=== PATIENT | female | born 1955 | race Caucasian/White ===

== ENCOUNTER 2018-02-19 07:25 | Outpatient (CLI) | payer OTHER ==
[2018-02-19] MEDS ORDERED: MIDAZOLAM 2 MG/2 ML VIAL IVP PRN ×2 (07:57→09:00)
[2018-02-19] MEDS ORDERED: MEPERIDINE 25 MG/ML SYR IVP PRN (07:57)
[2018-02-19] MEDS ORDERED: FLUMAZENIL 0.5 MG/5 ML MDV IVP PRN ×2 (07:57→09:00)
[2018-02-19] MEDS ORDERED: fentaNYL 100 MCG/2 ML INJ IVP PRN ×2 (07:57→09:00)
[2018-02-19] MEDS ORDERED: NALOXONE HCL 0.4 MG/ML INJ IVP PRN ×2 (07:57→09:00)
[2018-02-19] MEDS ORDERED: NS 1,000 ML IV SCH ×2 (08:00→09:00)
[2018-02-19] MEDS ORDERED: GADOBUTROL 10 ML VIAL IVP ONE (08:53)
[2018-02-19] MEDS ORDERED: ONDANSETRON 4 MG/2 ML VIAL IVP ONE (09:00)
[2018-02-19] MEDS ORDERED: NALOXONE HCL 0.4 MG/ML INJ ONE (09:00)
[2018-02-19] MEDS ORDERED: fentaNYL 100 MCG/2 ML INJ ONE (09:01)
[2018-02-19] MEDS ORDERED: MIDAZOLAM 2 MG/2 ML VIAL ONE (09:01)
[2018-02-19] MEDS ORDERED: FLUMAZENIL 0.5 MG/5 ML MDV IVP ONE (09:01)
--- NOTE | 2018-02-19 09:02 | PDPROPOC ---
Sedation Plan of Care Sedation Plan of Care: vital signs stable, mental status noted, patient educated of risks, benefits, alternatives, patient can tolerate sedation ASA Classification: ASA 1 Planned drugs: fentanyl, midazolam Mallampati Score: Class 2 Mallampati Reference Image: Patient passed 3-3-2 rule?: Yes
--- NOTE | 2018-02-19 09:03 | PDGENHP ---
History & Physical Chief Complaint: PARKINSONS History of Present Illness: PARKINSONS Pertinent Past, Social, Family History: NONSMOKER, PARKINSONS Relevant Physical Exam: CLEAR LUNGS, RRR Cardiorespiratory Assessment: RRR, CLEAR LUNGS
[2018-02-19 10:35] VITALS: BP 112/94
[2018-02-19] MEDS ORDERED: ONDANSETRON 4 MG/2 ML VIAL IVP PRN (10:54)
[2018-02-19] MEDS ORDERED: ACETAMINOPHEN 325 MG TAB PO PRN (10:54)
== END 2018-02-19 11:00 | disposition home or self-care (01) ==
LOC: FIMAGING 07:25
PROVIDERS: ATTEND Physician Assistant Surgical
DX: G20 Parkinson's disease (principal)
CPT/HCPCS: A9585; J2250; J2310; J3010

== ENCOUNTER 2018-03-01 06:05 | Observation (INO) | payer OTHER ==
--- NOTE | 2018-02-21 11:35 | GHP ---
DATE OF ADMISSION: 03/01/2018 HISTORY OF PRESENT ILLNESS: The patient is a 62-year-old female with Parkinson disease. She follows with her neurologist, Dr. Jarret Martínez, for medical management. She was diagnosed with Parkinson diseas e around 2011. Her symptoms first presented with small hand writing and a right hand tremor at rest. Her tremor is present at rest, but she finds that it can worsen with certain movements. Her medica tions work for unpredictable amounts of time, and she experiences wearing off. Her medications cause dyskinesias. She reports dystonia, bradykinesia, rigidity, freezing, balance issues, drooling, occa sional constipation, REM sleep disorder, hallucinations, and softening of speech. The freezing will slightly improve on medications. She has depression and anxiety. PAST MEDICAL HISTORY: Parkinson disease and depression. PAST SURGERIES: Three hernia surgeries. SOCIAL HISTORY: The patient is . Drinks alcohol socially. Denies tobacco use. FAMILY HISTORY: No pertinent. NEUROSURGICAL FAMILY HISTORY: Negative except for what is mentioned in the HPI. REVIEW OF SYSTEMS: Negative except for what is mentioned in the HPI. ALLERGIES: No known drug allergies. CURRENT MEDICATIONS: Amantadine, gabapentin, Zoloft, Sinemet, and levothyroxine. PHYSICAL EXAM: GENERAL APPEARANCE: The patient is seen and examined. Appears to be in no apparent distress. Mood and affect are appropriate. Alert and oriented. HEENT: Pupils are equal and reacti ve. Extraocular movements are intact. Facial expression is symmetrical. Tongue is midline with pro trusion. Hearing is grossly intact. NEUROLOGIC: Speech is fluent, without any dysarthria. Muscle strength is well preserved in the upper and lower extremities, and sensation is intact to light touch . ASSESSMENT AND PLAN: In summary, the patient is a 62-year-old female with Parkinson disease. She wright s had a neuropsych evaluation completed with Dr. Peña that states the patient is a suitable candid ate for deep brain stimulation. She has differences in her verbal and visual memory; however, both s cores are average to above average. It was also found that the patient has anxiety and depression th at are both situational, and thus during this process of DBS, we will closely monitor for signs of wo rsening depression. She underwent on-off testing on December 06 by her neurologist and had an off score of 17 and an on score of 6. The patient has been deemed a suitable candidate for deep brain s timulation and thus is here today to proceed. The risks, benefits, and procedure were discussed in d etail with the patient. We will proceed with unilateral left DBS lead placement to the STN today. /[id number]/MODL
[~2018-03-01 06:05] MED LIST: CEFUROXIME 1,500 MG in NS 50 ML IV ONE
[2018-03-01] MEDS ORDERED: LR 1,000 ML IV ONE (06:25)
[2018-03-01] MEDS ORDERED: LIDOCAINE 1% 2 ML INJ ID PRN (06:25)
[2018-03-01 07:24] LABS: PLATELET COUNT 160 10^3/uL (150-400)
--- NOTE | 2018-03-01 07:29 | PDHPUP ---
History & Physical Update H&P update statement: This history and physical update is based on an assessment of the patient which was completed after admission or registration (within 24 hours), but prior to the surgery/procedure. H&P update: H&P reviewed & patient examined, no change in patient's condition since H&P completed
--- NOTE | 2018-03-01 07:31 | PDANEPAE ---
ANE Past Medical History - Cardiovascular History Hx Hypertension: No Hx Arrhythmias: No Hx Chest Pain: No Hx Coronary Artery / Peripheral Vascular Disease: No Hx CHF / Valvular Disease: No Hx Palpitations: No - Pulmonary History Hx COPD: No Hx Asthma/Reactive Airway Disease: No Hx Recent Upper Respiratory Infection: No Hx Oxygen in Use at Home: No Hx Sleep Apnea: No Sleep Apnea Screening Result - Last Documented: Negative - Neurologic History Hx Cerebrovascular Accident: No Hx Seizures: No Hx Dementia: No Neurologic History Comment: parkinson's - Endocrine History Hx Diabetes: No - Renal History Hx Renal Disorders: No - Liver History Hx Hepatic Disorders: No - Neurological & Psychiatric Hx Hx Neurological and Psychiatric Disorders: Yes Neurological / Psychiatric History Comment: Parkinson's. INSOMNIA. SOME ISSUES WITH HALLUCINATIONS - Cancer History Hx Cancer: No - Congenital Disorder History Hx Congenital Disorders: No - GI History Hx Gastrointestinal Disorders: No - Other Health History Other Health History: PERIPHERAL NEUROPATHY. LUMBAR RADICULOPATHY. WEARS GLASSES - Chronic Pain History Chronic Pain: No - Surgical History Prior Surgeries: LT DEEP BRAIN STIMULATOR 03/01/18. HETAL ING HERNIA ANE Review of Systems Review of Systems: - Exercise capacity METS (RN): 4 METS ANE Patient History - Allergies Allergies/Adverse Reactions: No Known Allergies Allergy (Verified 02/19/18 10:40) - Home Medications Home Medications: Amantadine HCl [Amantadine] 100 mg PO ,12 02/08/18 [Last Taken 02/28/18 12:00] Carbidopa/Levodopa 25/250Mg [Sinemet 25/250 MG (*)] 1 tab PO 04,08,12,16 [Last Taken 02/28/18 16:00] Gabapentin 600 mg PO 04,08,12,21 02/08/18 [Last Taken 02/28/18 21:30] Herbals/Supplements -Info Only 1 ea PO DAILY 02/08/18 [Last Taken 02/22/18] Levothyroxine [Synthroid 75 mcg (*)] 75 mcg PO 0400 02/08/18 [Last Taken 04:00] Sertraline HCl [Zoloft 50mg (*)] 25 mg DAILY 02/08/18 [Last Taken 03/01/18 04:00 ] Carbidopa/Levodopa 25/250Mg [Sinemet 25/250 MG (*)] 0.5 tab PO HS 02/13/18 [ Last Taken 02/28/18 16:00] - NPO status NPO Since - Liquids (Date): 02/28/18 NPO Since - Liquids (Time): 22:30 NPO Since - Solids (Date): 02/28/18 NPO Since - Solids (Time): 22:30 - Smoking Hx Smoking Status: Never smoked - Family Anes Hx Family Hx Anesthesia Complications: none ANE Labs/Vital Signs - Labs Result Diagrams: 03/01/18 07:10 03/01/18 07:10 - Vital Signs Blood Pressure: 150/95 Heart Rate: 78 Respiratory Rate: 18 O2 Sat (%): 97 Height: 167.64 cm Weight: 62.142 kg ANE Physical Exam - Airway Neck exam: FROM Mallampati Score: Class 2 Mouth exam: normal dental/mouth exam - Pulmonary Pulmonary: no respiratory distress - Cardiovascular Cardiovascular: regular rate and rhythym - ASA Status ASA Status: II ANE Anesthesia Plan Anesthesia Plan: MAC Lines/Monitors: arterial line Total IV Anesthesia: Yes
[2018-03-01] MEDS ORDERED: fentaNYL 250 MCG/5 ML INJ ONE (07:41)
[2018-03-01] MEDS ORDERED: DEXMEDETOMIDINE HCL 400 MCG in NS 100 ML IV SCH (08:00)
[2018-03-01] MEDS ORDERED: MAGNESIUM HYDROXIDE 30 ML UDCUP PO PRN (11:01)
[2018-03-01] MEDS ORDERED: POLYETHYLENE GLYCOL 3350 17 GM PKT PO PRN (11:01)
[2018-03-01] MEDS ORDERED: LACTULOSE 20 GM/30 ML UDCUP PO PRN (11:01)
[2018-03-01] MEDS ORDERED: BISACODYL 10 MG SUPP PR PRN (11:01)
[2018-03-01] MEDS ORDERED: hydrALAZINE 20 MG/ML VIAL IVP PRN (11:04)
[2018-03-01] MEDS ORDERED: NALOXONE HCL 0.4 MG/ML INJ IVP PRN (11:06)
[2018-03-01] MEDS ORDERED: ACETAMINOPHEN 500 MG TAB PO PRN (11:06)
[2018-03-01] MEDS ORDERED: ONDANSETRON 4 MG/2 ML VIAL IVP PRN (11:06)
[2018-03-01] MEDS ORDERED: ALBUTEROL 3 ML DEYVIAL IH PRN (11:06)
--- NOTE | 2018-03-01 11:06 | POSTOPPROG ---
Post Op Note Date of Operation: 03/01/18 Surgeon: Susy Mackey Group Manager: Rachel uY PA-C Anesthesiologist: Anesthesia: IV Sedation, Local (Specify) Pre-op Diagnosis: Parkinson's Post-op Diagnosis: Parkinson's Procedure: Left STN DBS lead placement Inf/Abcess present in the surg proc area at time of surgery?: No Depth: Deep Incisional (Fascial) EBL: Minimal Plan Plan: 62 yo female s/p left STN DBS lead placement for PD - neuro checks - maintain SBP < 140 - postop head CT pending - PT/OT - pain control - discharge in am Patient seen in recovery Awake. Alert Following commands PERRL. Facial expression symmetrical Muscle strength full at 5/5
--- NOTE | 2018-03-01 11:06 | POSTANESTH ---
Post Anesthetic Evaluation Cardiovascular Status: Similar to Pre-Op Cond Respiratory Status: Similar to Pre-op Cond. Level of Consciousness/Mental Status: Alert and Oriented Pain Control: Adequate, Prn Tx Ordered Nausea/Vomiting Control: Adequate, Prn Tx Ordered Complications Possibly Related to Anesthesia: None Noted
[2018-03-01] MEDS ORDERED: BUPIVACAINE 0.25% 10 ML SDV ONE (11:13)
[2018-03-01] MEDS ORDERED: POVIDONE-IODINE 30 GM OINTTUBE TP ONE (11:13)
[2018-03-01] MEDS ORDERED: CHLORHEXIDINE GLUC HIBICLENS 118 ML BTL TP ONE (11:13)
[2018-03-01] MEDS ORDERED: GENTAMICIN SULFATE 80 MG/2 ML VIAL ONE (11:13)
[2018-03-01] MEDS ORDERED: THROMBIN (BOVINE) 5,000 UNIT VIAL TP ONE (11:14)
[2018-03-01] MEDS ORDERED: NS W/ 20 KCl/L 1,000 ML IV SCH (11:15)
[2018-03-01] MEDS ORDERED: BUPIVACAINE/EPI 0.25% 30 ML SDV ONE (11:18)
[2018-03-01] MEDS ORDERED: ACETAMINOPHEN 325 MG TAB ONE (11:32)
[2018-03-01] MEDS: AMANTADINE HCL 100 MG CAP PO SCH (11:39)
[2018-03-01] MEDS: CARBIDOPA/LEVODOPA 25 MG/250 MG TAB PO SCH ×2 (11:39→17:29)
[2018-03-01] MEDS: GABAPENTIN 300 MG CAP PO SCH ×2 (11:39→20:27)
[2018-03-01] MEDS: ACETAMINOPHEN 325 MG TAB PO PRN ×2 (11:39→20:27)
--- NOTE | 2018-03-01 11:41 | GOP ---
DATE OF OPERATION: 03/01/2018 SURGEON: Susy Mackey DO RETURNED GOODS REPAIRER: Pat Yu PA-C. PREOPERATIVE DIAGNOSIS: Parkinson disease. POSTOPERATIVE DIAGNOSIS: Parkinson disease. PROCEDURE PERFORMED: 1. Left deep brain stimulator lead placement with [employer] [address] and nucleus. 2. Stealth stereotaxis. FINDINGS: SPECIMENS: None. ESTIMATED BLOOD LOSS: 10 mL. INDICATIONS: This is a 62-year-old female with idiopathic Parkinson disease who was evaluated by a joti-disciplinary team, found to be a good candidate for DBS. She elected to move forward starting w ith right body. DESCRIPTION OF PROCEDURE: She was identified, consented. Sites were marked. Brought to the operati ng room. Anesthetized with local with MAC. Hair was clipped with the OR clippers. Head was cleanse d with ChloraPrep. Using povidone iodine on the pin sites, we anesthetized the pin sites with 0.25% Marcaine with epinephrine. Placed a Leksell frame as midline as possible. Performed a Stealth stere otactic spin and merged this with a preoperative stereotactic plan in the [employer] Framelink software. The ACPC was 24.61. The entry point was an X of -39.76, a Y of 34.49, a Z of 59.76 and the target was an X of -11.24, Y of -2.01 and Z of -4.87. These coordinates corresponded to 23.9 degrees off mi dsagittal, 60.6 degrees off midaxial. These coordinates corresponded to Leksell frame coordinates of an X of 114, Y of 105, a Z of 105, a ring of 60 degrees and arc of 111.7 degrees. We elected to per form an anterior and a center tract. 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 She was prepped and draped in the usual sterile fashion. All Leksell frame coordinates were set and triple checked by all providers in the room. The incision site was marked using Leksell frame coordinates a nd a cannula. Half-mcdonough incision was anesthetized with 0.5% Marcaine with epinephrine. Incision was made with a 10 blade. Hemostasis was obtained with bipolar and Clyde clips. We elevated the perios teum with a periosteal elevator. We then marked the bone incision. Using the cannula, performed a p ilot hole and then a 14 mm bur hole. The edges were waxed. We placed the Stealth Navigus and locked it down with 5 mm screws. Verified the clipping mechanism, clipped and locked. Opened the dura sha rply with an 11 blade, and then used a bipolar to coagulate. We then gently introduced the center an d anterior cannulae,locked them in place, placed Gelfoam and DuraSeal, then placed microelectrodes. I then required an assistant teaching professor as 1 provider needed to be scrubbed to manage the cannulas and the drive and 1 provider for testing. Intraoperative testing was performed and intraoperative DION got approxi mately 7 mm of STN getting out at 1 below on both the anterior and the center although the anterior t ract was more robust. We got motor driving and were pleased with this. We macro stim for both of th em, got good relief with little or no side effects, but because the anterior tract was a little bit m ore robust, we elected to implant in the anterior tract here at 1 [address] We drove to this re gion, removed the microelectrodes, measured the lead to the appropriate depth and placed it into the anterior tract and then performed intraoperative testing. We got excellent relief at low voltages wi th no side effects at any of the contacts. Every contact was usable, every contact was therapeutic. We elected to leave the lead here. We placed the sites, took an x-ray and then performed a stereotactic spin. This was to the preoperative plan and it was done on where we would exp ect it to be. We then retracted the cannulas and removed the Gel-Foam and DuraSeal, irrigated with g entamicin-infused saline, placed the clipping mechanism, clipped and locked it, marked the lead, clarisa tomi the internal stylet, brought the lead down and out the cannula using bayonets, placed it into the groove, placed the cap over the lead. Took another x-ray. It had not migrated. Placed the boot ov er the lead, placed the extension over the lead, locked it into place, protecting each contact, broug ht the boot over the lead extension complex, tied in position with 2-0 silk ties at 2 positions. Lencho neled posterior with a periosteal elevator. Anesthetized the stab incision posterior with 0.25% Hermilo ralph with epinephrine. A stab incision was made with an 11 blade, and tunneled posterior and anterio r, bringing the lead extension down and out, cutting at the skin, coiling the remainder of the lead a nd the extension posterior and around the incision. I took a final x-ray. It had not migrated. Environmental Projects Advisor iously irrigated with over a liter of gentamicin-infused saline. Closed the galea with 2-0 Vicryl po p-offs. The skin with 3-0 running nylon. The wound was dressed with Xeroform and Telfa and the fram e was removed. Head was wrapped. Patient tolerated procedure well, no complications. FLUIDS: 1100 mL crystalloid. URINE OUTPUT: Not recorded. DRAINS: None. COMPLICATIONS: None. /[id number]/MODL
--- NOTE | 2018-03-01 12:22 | GPN ---
DATE OF PROCEDURE: 03/01/2018 PREPROCEDURE DIAGNOSIS: Parkinson disease. POSTPROCEDURE DIAGNOSIS: Parkinson disease. PROCEDURE PERFORMED: Intraoperative functional subcortical mapping by microelectrode recording and s timulation. COMPLICATIONS: None. INDICATIONS FOR PROCEDURE: Determination of optimal electrode lead placement for deep brain stimulat ion therapy for Parkinson disease to the STN. DESCRIPTION OF PROCEDURE: Following the incision on the left, a matt hole was drilled. The arc was then arranged with the following coordinates: X 114, Y 105, Z 105, ring 60, arc 111.7. The recordin g microelectrode was then slowly advanced into the brain using an anterior and central tract. There was uptake at 8.5 above target in the anterior tract with evidence of entering STN at 5.5 above targe t. In the anterior tract at 5.5 above target, there was change in stimulation with passive range of motion with elbow flexion. There was evidence of a tremor cell at 0.7 above target, and we exited ST N at approximately 1 below target. In regard to the center tract, there was uptake at 6.1 above targ et and evidence of entering STN at 5.1 above target. We exited STN at 1 below target. We then proce eded with macro stimulation for both the center and anterior tract. For both of these track, the pat ient had no side effects up to 4.5, and she had more improvement in her bradykinesias and rigidity wi th the anterior tract. We therefore elected to place the lead using the anterior tract with the shelby om of the lead at 1 below. We then proceeded with test stimulation at 0-. The patient had improveme nt in her bradykinesias and rigidity with no side effects up to 3.5. At 1-, improvement in bradykine marcelina and rigidity with no side effects up to 3.5. At 2-, improvement in bradykinesias and rigidity w ith no side effects up to 3.5. At 3-, no side effects up to 3.5. With these recordings and test sti mulation, we elected to place the lead in this location utilizing the anterior tract with the bottom of the lead at 1 below target. The patient tolerated the surgery well, and was transferred to the [facility] for further neurological checks and pain control. /[id number]/MODL
[2018-03-01] MEDS: HYDROCODONE/APAP 10/325 TAB PO PRN ×2 (15:19→21:32)
[2018-03-01] MEDS: CEFUROXIME 1,500 MG in NS 50 ML IV SCH ×2 (15:48→22:37)
[2018-03-01] MEDS: oxyCODONE IR 5 MG TAB PO PRN ×2 (16:16→19:31)
[2018-03-01] MEDS: SENNOSIDES/DOCUSATE SODIUM TAB PO SCH (20:28)
[2018-03-01] MEDS: ONDANSETRON 4 MG/2 ML VIAL IVP PRN (20:40)
[2018-03-01] MEDS ORDERED: CARBIDOPA/LEVODOPA 25 MG/250 MG TAB PO SCH (21:00)
[2018-03-02] MEDS ORDERED: LEVOTHYROXINE 75 MCG TAB PO SCH (04:00)
[2018-03-02] MEDS: HYDROCODONE/APAP 10/325 TAB PO PRN (04:02)
[2018-03-02] MEDS: GABAPENTIN 300 MG CAP PO SCH ×2 (04:03→09:05)
[2018-03-02] MEDS: CARBIDOPA/LEVODOPA 25 MG/250 MG TAB PO SCH ×2 (04:03→10:07)
[2018-03-02] MEDS: ONDANSETRON 4 MG/2 ML VIAL IVP PRN (06:34)
[2018-03-02] MEDS ORDERED: SERTRALINE HCL 50 MG TAB PO SCH (09:00)
[2018-03-02] MEDS: SENNOSIDES/DOCUSATE SODIUM TAB PO SCH (09:05)
[2018-03-02] MEDS: AMANTADINE HCL 100 MG CAP PO SCH (10:07)
[2018-03-02 12:06] VITALS: BP 98/56
--- NOTE | 2018-03-02 12:08 | NEUSURGPN ---
Date of Surgery: 03/01/18 Post Op Day: 1 Assessment/Plan: Assessment: 62 yo female s/p left STN DBS lead placement for PD POD#1 Plan: - postop head CT shows stable catheter placement, mild left pneumocephalus - PT/OT - pain control-well controlled with current regimen - discharge home Discussed patient with Dr Mackey Subjective: Doing well, denies pain Objective: PERRL. Facial expression symmetrical Muscle strength full at 5/5 Incision CDI with sutures Neuro Check Frequency: per routine Urinary Catheter in Place: No - Physician Discussed Patient with : Key Neurosurgery Physical Exam - Vitals, I&O, Labs I and O 03/01/18 03/02/18 03/03/18 05:59 05:59 05:59 Intake Total 2495 350 Output Total 310 Balance 2185 350 Weight 62.142 kg Intake: Oral (ml) 520 350 IV Intake (ml) 700 IV Infused (ml) 1275 Cefuroxime 1,500 mg In Ns 160 50 ml @ 200 mls/hr IV ONCALL ONE Rx#:[id number] Cefuroxime 1,500 mg In Ns 55 50 ml @ 200 mls/hr IV Q8HRS ROSIE Rx#:[id number] NS W/ 20 KCl/L 1,000 ml @ 1060 75 mls/hr IV CONT ROSIE Rx #:[id number] Output: Urine (ml) 300 Bedside Commode 300 Estimated Blood Loss (ml) 10 Other: Intake Quantity Yes Yes Sufficient Number of Emesis 1 2 Occurrences Vital Signs Temp Pulse Resp BP Pulse Ox 36.5 C 67 16 127/83 H 96 03/02/18 08:00 03/02/18 08:00 03/02/18 08:00 03/02/18 08:00 03/02/18 08:00 Laboratory Results 03/01/18 07:10 03/01/18 07:10 ICD10 Worksheet Patient Problems: Problems Problem Status Onset S/P deep brain stimulator placement Acute - ICD10 Problem Qualifiers (1) S/P deep brain stimulator placement
--- NOTE | 2018-03-02 14:34 | ASDISCHSUM ---
Discharge Information Plan Status:Home with No Needs Medically Cleared to Leave:03/01/2018 Discharge Date:03/02/2018 12:44 PM CM D/C Disposition:Home, Routine, Self-Care ADT D/C Disposition:Home, Routine, Self-Care Projected Discharge Date:03/02/2018 12:44 PM Transportation at D/C:Family Discharge Delay Reason: Follow-Up Date:03/02/2018 12:44 PM Discharge Slot: Final Diagnosis:Parkinsons Disease Placement Information Patient Contact Information Contact Name:DHEERAJ Relationship: Address:[address] Work Phone: [facility]:[place] Alternate Phone: [facility]/Zip Code:[place] [address] Email: Financial Information Financial Class:HMO and PPO Plans Primary Plan Desc:[employer] Primary Plan Number:[id number] Secondary Plan Desc: Secondary Plan Number: Assessment Information Case Management Discharge Plan Note Case Management Discharge Discharge Order Complete? Answers: Yes Patient to Obtain Answers: via Family Medications Transportation Arranged Answers: Family/Friends Transport will Pick (Date 03/02/2018 12:00 AM & Time) Discharge Comments Notes: Pt left before CM was able to speak with her. Pt called by CM after discharge. Pt declines home care at this time. No CM needs noted at this time. Date Signed: 03/02/2018 02:31 PM Electronically Signed By:Kena Ma LACE LACE Length of stay for Answers: 1 day current admission Acuity / Level of Answers: No Care: Did the patient have an inpatient admission? Comorbidities - select Answers: Other Notes: Parkinsons all that apply # of Emergency department Answers: 0 visits in the last 6 months Score: 2 Date Signed: 03/02/2018 02:33 PM Electronically Signed By:Kena Ma Intervention Information
[2018-03-04] MEDS ORDERED: ENOXAPARIN 40 MG/0.4 ML SYR SC SCH (09:00)
--- NOTE | 2018-03-05 14:18 | GDS ---
ADMITTING DIAGNOSIS: Parkinson disease. POSTOPERATIVE DIAGNOSIS: Parkinson disease. PROCEDURE PERFORMED: Left deep brain stimulator lead placement to the STN. CONSULTS: Physical and Occupational Therapy. HOSPITAL COURSE: The patient is a 62-year-old female who presented to the hospital to undergo deep brain stimulation for Parkinson disease. She underwent surgery by Dr. Susy Mackey on March 01, with placement of left deep brain stimulator lead to the STN. The patient tolerated the surgery well without complications. Postoperative head CT was negative for any acute intracranial hemorrhage. She was transferred to the floor for further pain control and neurological checks. The following morning, she was tolerating a diet, voiding without difficulty, pain controlled, and medically stable, and thus, she was deemed suitable for discharge. She was discharged to home on March 02. DISCHARGE INSTRUCTIONS: Patient is asked to follow up with Dr. Susy Mackey in 2 weeks. She needs to refrain from heavy lifting and strenuous activity. DISCHARGE MEDICATIONS: Please refer to the [facility] /[id number]/MODL MTDD
== END 2018-03-02 12:44 | disposition home or self-care (01) ==
LOC: F3N 06:05
PROVIDERS: ADMIT Neurological Surgery; ATTEND Neurological Surgery
DX: G20 Parkinson's disease (principal); F32.9 Major depressive disorder, single episode, unspecified
CPT/HCPCS: 61850; 70450; 76001; 97165; G0378; J0697; J1580; J2405; J3010

== ENCOUNTER 2018-03-29 05:34 | Observation (INO) | payer OTHER ==
[2018-03-29] MEDS ORDERED: CEFUROXIME 1,500 MG in NS 50 ML IV ONE (06:00)
[2018-03-29] MEDS ORDERED: CHLORHEXIDINE GLUC HIBICLENS 118 ML BTL TP ONE (06:46)
[2018-03-29] MEDS ORDERED: THROMBIN (BOVINE) 20,000 UNIT VIAL TP ONE (06:46)
[2018-03-29] MEDS ORDERED: BUPIVACAINE/EPI 0.25% 30 ML SDV ONE (06:46)
[2018-03-29] MEDS ORDERED: GENTAMICIN SULFATE 80 MG/2 ML VIAL ONE (06:47)
[2018-03-29] MEDS ORDERED: POVIDONE-IODINE 30 GM OINTTUBE TP ONE (06:47)
[2018-03-29] MEDS ORDERED: fentaNYL 100 MCG/2 ML INJ ONE (07:16)
[2018-03-29] MEDS ORDERED: PROPOFOL/EMULSION 500 MG/50 ML BOTTLE IV ONE (07:17)
--- NOTE | 2018-03-29 07:18 | PDANEPAE ---
ANE History of Present Illness parkinson's ANE Past Medical History - Cardiovascular History Hx Hypertension: No Hx Arrhythmias: No Hx Chest Pain: No Hx Coronary Artery / Peripheral Vascular Disease: No Hx CHF / Valvular Disease: No Hx Palpitations: No - Pulmonary History Hx COPD: No Hx Asthma/Reactive Airway Disease: No Hx Recent Upper Respiratory Infection: No Hx Oxygen in Use at Home: No Hx Sleep Apnea: No Sleep Apnea Screening Result - Last Documented: Negative - Neurologic History Hx Cerebrovascular Accident: No Hx Seizures: No Hx Dementia: No Neurologic History Comment: parkinson's. peripherial neuropathy. lumbar radiculopathy - Endocrine History Hx Diabetes: No Hypothyroid: No Hyperthyroid: No Obesity: no - Renal History Hx Renal Disorders: No - Liver History Hx Hepatic Disorders: No - Neurological & Psychiatric Hx Hx Neurological and Psychiatric Disorders: Yes Neurological / Psychiatric History Comment: depression. anxiety. some insomnia issues and hallucinations r/t parkinson's meds - Cancer History Hx Cancer: No - Congenital Disorder History Hx Congenital Disorders: No - GI History GERD: no Hx Gastrointestinal Disorders: No - Other Health History Other Health History: wears glasses - Chronic Pain History Chronic Pain: No - Surgical History Prior Surgeries: DBS lead placements. hernia repair ANE Review of Systems Review of Systems: - Exercise capacity Exercise capacity: >=4 METS METS (RN): 4 METS ANE Patient History - Allergies Allergies/Adverse Reactions: No Known Allergies Allergy (Verified 03/26/18 10:58) - Home Medications Home medications: home medication list seen and reviewed Home Medications: Amantadine HCl [Amantadine] 100 mg PO 08,12 02/08/18 [Last Taken 03/28/18 12:00] Carbidopa/Levodopa 25/250Mg [Sinemet 25/250 MG (*)] 1 tab PO 04,08,12,16 [Last Taken 03/28/18 16:00] Gabapentin 600 mg PO 04,08,12,21 02/08/18 [Last Taken 03/28/18 21:00] Levothyroxine [Synthroid 75 mcg (*)] 75 mcg PO 0400 02/08/18 [Last Taken 04:00] Sertraline HCl [Zoloft 50mg (*)] 25 mg DAILY 02/08/18 [Last Taken 03/29/18 04:00 ] Carbidopa/Levodopa 25/250Mg [Sinemet 25/250 MG (*)] 0.5 tab PO HS 02/13/18 [ Last Taken 03/27/18 21:30] - NPO status NPO Status: no food or drink >8 hours NPO Since - Liquids (Date): 03/28/18 NPO Since - Liquids (Time): 23:30 NPO Since - Solids (Date): 03/28/18 NPO Since - Solids (Time): 23:30 - Smoking Hx Smoking Status: Never smoked - Family Anes Hx Family Hx Anesthesia Complications: none ANE Labs/Vital Signs - Vital Signs Blood Pressure: 151/95 Heart Rate: 67 Respiratory Rate: 18 O2 Sat (%): 99 Height: 167.64 cm Weight: 62.142 kg ANE Physical Exam - Airway Mallampati Score: Class 2 Mouth exam: normal dental/mouth exam - Pulmonary Pulmonary: no respiratory distress - Cardiovascular Cardiovascular: regular rate and rhythym - ASA Status ASA Status: II ANE Anesthesia Plan Anesthesia Plan: MAC Lines/Monitors: arterial line
[2018-03-29] MEDS ORDERED: DEXMEDETOMIDINE HCL 200 MCG in NS 50 ML IV ONE ×2 (07:30→08:30)
[2018-03-29] MEDS ORDERED: PHENYLEPHRINE HCL 100 MCG/ML SYR ONE (08:37)
[2018-03-29] MEDS ORDERED: POLYETHYLENE GLYCOL 3350 17 GM PKT PO PRN (09:03)
[2018-03-29] MEDS ORDERED: BISACODYL 10 MG SUPP PR PRN (09:03)
[2018-03-29] MEDS ORDERED: MAGNESIUM HYDROXIDE 30 ML UDCUP PO PRN (09:03)
[2018-03-29] MEDS ORDERED: LACTULOSE 20 GM/30 ML UDCUP PO PRN (09:03)
[2018-03-29] MEDS ORDERED: ONDANSETRON 4 MG/2 ML VIAL IVP PRN ×2 (09:03→10:09)
[2018-03-29] MEDS ORDERED: hydrALAZINE 20 MG/ML VIAL IVP PRN (09:08)
[2018-03-29] MEDS ORDERED: NS W/ 20 KCl/L 1,000 ML IV SCH (09:15)
[2018-03-29] MEDS ORDERED: HYDROmorphONE/DILAUDID 2 MG/ML INJ IVP PRN (10:09)
[2018-03-29] MEDS ORDERED: LR 500 ML IV PRN (10:09)
[2018-03-29] MEDS ORDERED: fentaNYL 100 MCG/2 ML INJ IVP PRN (10:09)
[2018-03-29] MEDS ORDERED: ALBUTEROL 3 ML DEYVIAL IH PRN (10:09)
[2018-03-29] MEDS ORDERED: NALOXONE HCL 0.4 MG/ML INJ IVP PRN (10:09)
[2018-03-29] MEDS ORDERED: ONDANSETRON 4 MG/2 ML VIAL ONE (10:09)
--- NOTE | 2018-03-29 10:23 | POSTANESTH ---
Post Anesthetic Evaluation Cardiovascular Status: Normal, Stable Respiratory Status: Normal, Stable Level of Consciousness/Mental Status: Can Participate in Eval Pain Control: Adequate, Prn Tx Ordered Nausea/Vomiting Control: Adequate, Prn Tx Ordered Complications Possibly Related to Anesthesia: None Noted
--- NOTE | 2018-03-29 11:08 | POSTOPPROG ---
Post Op Note Date of Operation: 03/29/18 Surgeon: Susy Mackey Quantometer Operator: Pat Yu PA-C Anesthesiologist: Dr. Hinds Anesthesia: GET(General Endotracheal) Pre-op Diagnosis: Parkinson's Post-op Diagnosis: Parkinson's Procedure: right STN DBS lead placement Inf/Abcess present in the surg proc area at time of surgery?: No Depth: Superfical (Skin SQ) EBL: Minimal Plan Plan: 62 yo female s/p right STN DBS lead placement for PD - neuro checks - pain control - maintain SBP < 140 - postop head CT pending, if stable can transfer to the floor - discharge to home tomorrow Exam PERRL. EOMI Facial expression symmetrical Following commands Strength full Incision with dressing c/d/i
[2018-03-29] MEDS: GABAPENTIN 300 MG CAP PO SCH ×2 (11:12→20:29)
--- NOTE | 2018-03-29 11:12 | GOP ---
DATE OF OPERATION: SURGEON: Susy Mackey DO NEUROSURGEON: Susy Mackey DO GRAIN BUYER: STAECY Vallejo PREOPERATIVE DIAGNOSIS: Parkinson disease. POSTOPERATIVE DIAGNOSIS: Parkinson disease. PROCEDURE PERFORMED: 1. Right deep brain stimulator lead placement to subthalamic nucleus with Medtronic 3389 lead. 2. Stealth stereotaxis. FINDINGS: SPECIMENS: None. ESTIMATED BLOOD LOSS: 25 mL. INDICATIONS: This is a 62-year-old female who had been evaluated by a multidisciplinary team, found to be a good candidate for DBS for Parkinson disease, elected to move forward, had a left-sided lead placed approximately 1 month ago, returns today for lead placement on the right. She had excellent p lacement on the left and we elected to mirror the lead on the right. DESCRIPTION OF PROCEDURE: We clipped the hair with the OR clippers. She was consented and brought t o the operating room, anesthetized with local with MAC. Head was cleansed with ChloraPrep and povido ne iodine was placed on the Leksell frame pins. The pin sites were anesthetized with 0.5% Marcaine w ith epinephrine. The Leksell frame was placed in a stereotactic position. A stereotactic spin with the O-arm 2 and a localizer box was performed and merged to the preoperative plan. We then were able to mirror the lead to the other side with a target X of 11.24, Y of -2.01 and Z of -4.87. The entry point was an X of 46.62, a Y of 25.03, a Z of 60.14. This corresponded to 28.6 degrees off midaxial and 67.4 degrees off midsagittal. This corresponded to Leksell frame coordinates of an X of 87, a Y of 85, a Z of 107.5, a ring of 70 degrees, an arc of 61.7 degrees. These were all set and triple ch ecked by all providers in the room after prepping and draping in the usual sterile fashion. Incision was marked with the preoperative Leksell frame coordinates and a cannula, and a half-mcdonough incision w as anesthetized with 0.5% Marcaine with epinephrine. Incision was made with a 10 blade. Periosteum was elevated with periosteal elevator. Meticulous hemostasis was obtained with bipolar and Clyde cli ps. We then marked the bone opening and performed a heavy duty mechanic hole, then a 14 mm Abraham bur hole, verif ied it was in the appropriate position. After waxed the bone edges, placed the Navigus Stimloc devic e, locked it down with 5 mm Synthes screws, verified the clipping mechanism, clipped and locked, open ed the dura sharply with an 11 blade, meticulous hemostasis with bipolar cautery and centered the al d in the cannula and inner stylet, locked it into place, plugged the hole with Gelfoam and DuraSeal, placed a microelectrode, checked impedances. Impedances were good. We performed microelectrode maria luisa rdings at this point in time and a surgical corsetier was necessary as 1 person needed to remain scrubbe d as the other person was following the microelectrode recording, and so the dictation of the microel ectrode recording will be performed by STACEY Vallejo. However, we got approximately 7 mm of S TN with good motor driving and no side effects in the middle of the lead. We elected to place a 3389 lead at 1 below target where we got out of the STN and we drove to the appropriate level. After rem oving the microelectrode, we measured the lead to the appropriate length and placed the lead, locking it in place. We tested the lead at all 4 contacts. All impedances were good. We had excellent the rapeutic effect, particularly at the 2 and 3 contacts, with low to no side effects. I elected to al ve the lead here, took an x-ray with the sites, then retracted the cannula, performed a [facility] stereotactic spin and merged it, and it was -on with no deviation of the preoperative plan. We then irrigated with gentamicin-infused saline, closed the locking clip mechanism, verified it wa s clipped and locked, marked the lead, removed the stylet, brought the lead down and out with siaonebrandon s, placed it into the groove, placed the cap, took another x-ray. It had not migrated. Placed the b oot over the lead, placed the lead extension over the lead, locked it in place with the torque wrench at all positions, brought the boot over the lead extension complex, tied it in position with 2-0 yue k ties at 2 positions, tunneled posterior with a periosteal elevator. Anesthetized the stab incision with 0.5% Marcaine with epinephrine and made a stab incision with a 10 blade and tunneled posterior to anterior, bringing the lead extension down and out, cutting at the skin, coiled the lead around th e incision, copiously irrigating with over a liter of gentamicin-infused saline. Closed the galea wi th 2-0 Vicryl pop-offs, the skin with 3-0 running nylon, dressed the wound with Xeroform and Telfa, s tapled down. Removed the [place] headline writer, wrapped the head. Patient tolerated procedure well, no complications. FLUIDS: 1 L crystalloid. URINE OUTPUT: Not recorded. DRAINS: None. COMPLICATIONS: None. /[id number]/MODL
[2018-03-29] MEDS: AMANTADINE HCL 100 MG CAP PO SCH (11:13)
[2018-03-29] MEDS: CARBIDOPA/LEVODOPA 25 MG/250 MG TAB PO SCH ×3 (11:14→20:29)
[2018-03-29] MEDS: HYDROCODONE/APAP 5/325 TAB PO PRN ×2 (14:04→17:52)
[2018-03-29] MEDS: CEFUROXIME 1,500 MG in NS 50 ML IV SCH ×2 (14:53→21:17)
[2018-03-29] MEDS: SENNOSIDES/DOCUSATE SODIUM TAB PO SCH (20:31)
[2018-03-29] MEDS: oxyCODONE IR 5 MG TAB PO PRN ×2 (21:17→21:53)
[2018-03-30] MEDS: oxyCODONE IR 5 MG TAB PO PRN ×2 (03:47→09:24)
[2018-03-30] MEDS: GABAPENTIN 300 MG CAP PO SCH ×3 (03:48→13:17)
[2018-03-30] MEDS: CARBIDOPA/LEVODOPA 25 MG/250 MG TAB PO SCH ×4 (03:48→13:17)
[2018-03-30] MEDS ORDERED: LEVOTHYROXINE 75 MCG TAB PO SCH (04:00)
--- NOTE | 2018-03-30 06:07 | GPN ---
DATE OF PROCEDURE: 03/29/2018 PREPROCEDURE DIAGNOSIS: Parkinson's disease. POSTPROCEDURE DIAGNOSIS: Parkinson's disease. PROCEDURE PERFORMED: Intraoperative functional subcortical mapping by microelectrode recording and s timulation. COMPLICATIONS: None. INDICATIONS FOR PROCEDURE: Determination of optimal electrode lead placement for deep brain stimulat ion therapy for Parkinson disease to the STN. DESCRIPTION OF PROCEDURE: Following the incision on the right a matt hole was drilled. The arc was then arranged with the following coordinates: X 87, Y 85, Z 107.5, ring 70, arc is 61.7. The record ing microelectrode was then slowly advanced into the brain using a central tract. There was evidence of cell bursts at 20 and 17 above target. There were borderline cells to the STN at 6.5 above targe t as we entered STN at 6.0 above target. There was change in stimulation with elbow extension at 4.6 above target and we exited out of STN at 1 below target. We then elected to proceed with macro stim ulation at 3 above target. Patient experienced no side effects up to 4.0. With the microelectrode r ecordings obtained, we elected to proceed with test stimulation. The lead was placed with the bottom of the lead at 1 below target. At 0- patient had sustained paresthesias in her left hand at 3.0 amp litude. At 1- she had no side effects up to 3.5 with improved bradykinesias. At 2- she had no side effects up to 3.5 with improved bradykinesias. At 3- she had no side effects up to 3.5 with improved bradykinesias. With these recordings and test stimulation, we elected to place the lead at this loc ation utilizing the central track at the bottom of the lead at 1 below target. The patient tolerated the surgery well and was transferred to the floor for further neurological checks and peak control. /[id number]/MODL
[2018-03-30 07:38] VITALS: BP 104/68
[2018-03-30] MEDS ORDERED: SERTRALINE HCL 50 MG TAB PO SCH (09:00)
[2018-03-30] MEDS: SENNOSIDES/DOCUSATE SODIUM TAB PO SCH (09:23)
[2018-03-30] MEDS: ACETAMINOPHEN 325 MG TAB PO PRN ×2 (09:23→13:17)
[2018-03-30] MEDS: AMANTADINE HCL 100 MG CAP PO SCH ×2 (09:24→13:17)
--- NOTE | 2018-03-30 09:52 | SOAPPROG ---
SOAP Progress Note Assessment/Plan: Assessment: 62 yo F POD #1 right DBS lead placement Plan: stable and doing well overall PT/OT pain controlled with po meds dc home today please call with neuro changes discussed with Dr Juarez 03/30/18 09:51 Subjective: headache improved with oxy, no N/V. No weakness. Objective: Vital Signs Temp Pulse Resp BP Pulse Ox 36.6 C 75 15 104/68 93 03/30/18 07:37 03/30/18 07:37 03/30/18 07:37 03/30/18 07:37 03/30/18 07:37 03/29/18 03/30/18 03/31/18 05:59 05:59 05:59 Intake Total 1350 Output Total 1225 Balance 125 AAOx4, +FC PERRL, EOMI, no facial droop 5/5 + light touch C/D/I ICD10 Worksheet Patient Problems: Problems Problem Status Onset S/P deep brain stimulator placement Acute
--- NOTE | 2018-03-30 10:09 | ASDISCHSUM ---
Discharge Information Plan Status:Home with No Needs Medically Cleared to Leave: Discharge Date: CM D/C Disposition:Home, Routine, Self-Care ADT D/C Disposition:Home, Routine, Self-Care Projected Discharge Date: Transportation at D/C:Family Discharge Delay Reason: Follow-Up Date: Discharge Slot: Final Diagnosis: Placement Information Patient Contact Information Contact Name:DHEERAJ Relationship: Address:[address] Work Phone: City:[place] Alternate Phone: State/Zip Code:[place] [address] Email: Financial Information Financial Class:HMO and PPO Plans Primary Plan Desc:[employer] Primary Plan Number:[id number] Secondary Plan Desc: Secondary Plan Number: Assessment Information LACE LACE Acuity / Level of Answers: No Care: Did the patient have an inpatient admission? Comorbidities - select Answers: Other Notes: parkinsons all that apply # of Emergency department Answers: 0 visits in the last 6 months Score: 1 Date Signed: 03/30/2018 10:08 AM Electronically Signed By:Chantal Youssef Intervention Information
[2018-04-01] MEDS ORDERED: ENOXAPARIN 40 MG/0.4 ML SYR SC SCH (09:00)
--- NOTE | 2018-04-03 11:11 | GDS ---
ADMISSION DIAGNOSIS: Parkinson disease. DISCHARGE DIAGNOSIS: Status post right STN DBS lead placement for Parkinson's disease. HISTORY AND PHYSICAL: Please see admission history and physical. HOSPITAL COURSE: The patient is a 62-year-old female with Parkinson disease. She was taken to the perating room on 03/29/2018, where she underwent a right STN DBS lead placement for her Parkinson dis ease. There were no intraoperative complications, and she was admitted to the floor for observation. A postop head CT showed good position of the lead, with no evidence of an acute hemorrhage. She ma de fair progress with physical therapy and occupational therapy. She was discharged home in stable c ondition on 03/30/2018. Patient was discharged with postoperative deep brain stimulation instruction s and recommended she return for a neurosurgical followup appointment in 2 weeks. /[id number]/MODL
== END 2018-03-30 13:31 | disposition home or self-care (01) ==
LOC: F3N 05:34
PROVIDERS: ADMIT Neurological Surgery; ATTEND Neurological Surgery
PROC: 00H03MZ Insertion of Neurostimulator Lead into Brain, Percutaneous Approach (ICD-10-PCS; principal; 2018-03-29 07:15)
PROC: BW191ZZ Fluoroscopy of Head and Neck using Low Osmolar Contrast (ICD-10-PCS; principal; 2018-03-29 07:15)
PROC: 00K00ZZ Map Brain, Open Approach (ICD-10-PCS; principal; 2018-03-29 07:15)
PROC: 4A1004G Monitoring of Central Nervous Electrical Activity, Intraoperative, Open Approach (ICD-10-PCS; principal; 2018-03-29 07:15)
DX: G20 Parkinson's disease (principal); M54.16 Radiculopathy, lumbar region
CPT/HCPCS: 61867; 70450; G0378; C1713; J0360; J0697; J1580; J2270; J2370; J2405; J2704; J3010

== ENCOUNTER 2018-04-19 05:37 | Day surgery (SDC) | payer OTHER ==
[~2018-04-19 05:37] MED LIST changes: -CEFUROXIME 1,500 MG in NS 50 ML IV ONE; +LIDOCAINE 1% 2 ML INJ ID PRN; +LR 1,000 ML IV ONE
[2018-04-19] MEDS ORDERED: ACETAMINOPHEN 500 MG TAB PO ONE (05:49)
[2018-04-19] MEDS ORDERED: ceFAZolin 2 GM/DEXTROSE 100 ML IV ONE (05:49)
[2018-04-19] MEDS ORDERED: LIDOCAINE 1% 2 ML INJ ID PRN (05:50)
[2018-04-19] MEDS ORDERED: LR 1,000 ML IV ONE (05:50)
[2018-04-19] MEDS ORDERED: ACETAMINOPHEN 500 MG TAB ONE (06:29)
[2018-04-19] MEDS ORDERED: CHLORHEXIDINE GLUC HIBICLENS 118 ML BTL TP ONE ×2 (06:32→07:16)
[2018-04-19] MEDS ORDERED: BUPIVACAINE 0.25% 30 ML SDV ONE (06:32)
[2018-04-19] MEDS ORDERED: EPINEPHrine 1 MG/ML INJ ONE (06:33)
[2018-04-19] MEDS ORDERED: GENTAMICIN SULFATE 80 MG/2 ML VIAL ONE (06:33)
[2018-04-19] MEDS ORDERED: PROPOFOL 200 MG/20 ML VIAL ONE ×2 (07:00→08:22)
[2018-04-19] MEDS ORDERED: PROPOFOL/EMULSION 500 MG/50 ML BOTTLE IV ONE ×3 (07:00→08:24)
[2018-04-19] MEDS ORDERED: MIDAZOLAM 2 MG/2 ML VIAL IVP ONE (07:01)
[2018-04-19] MEDS ORDERED: fentaNYL 100 MCG/2 ML INJ ONE ×2 (07:01→10:03)
--- NOTE | 2018-04-19 07:01 | PDANEPAE ---
ANE History of Present Illness parkinsons ANE Past Medical History - Cardiovascular History Hx Hypertension: No Hx Arrhythmias: No Hx Chest Pain: No Hx Coronary Artery / Peripheral Vascular Disease: No Hx CHF / Valvular Disease: No Hx Palpitations: No - Pulmonary History Hx COPD: No Hx Asthma/Reactive Airway Disease: No Hx Recent Upper Respiratory Infection: No Hx Oxygen in Use at Home: No Hx Sleep Apnea: No Sleep Apnea Screening Result - Last Documented: Negative - Neurologic History Hx Cerebrovascular Accident: No Hx Seizures: No Hx Dementia: No Neurologic History Comment: parkinson's. peripherial neuropathy. lumbar radiculopathy - Endocrine History Hx Diabetes: No Hypothyroid: No Hyperthyroid: No Obesity: no - Renal History Hx Renal Disorders: No - Liver History Hx Hepatic Disorders: No - Neurological & Psychiatric Hx Hx Neurological and Psychiatric Disorders: Yes Neurological / Psychiatric History Comment: depression. anxiety. some insomnia issues and hallucinations r/t parkinson's meds - Cancer History Hx Cancer: No - Congenital Disorder History Hx Congenital Disorders: No - GI History GERD: no Hx Gastrointestinal Disorders: No - Other Health History Other Health History: wears glasses - Chronic Pain History Chronic Pain: No - Surgical History Prior Surgeries: DBS lead placements. hernia repair ANE Review of Systems Review of systems is: negative Review of Systems: - Exercise capacity Exercise capacity: >=4 METS METS (RN): 4 METS ANE Patient History - Allergies Allergies/Adverse Reactions: No Known Allergies Allergy (Verified 03/26/18 10:58) - Home Medications Home medications: home medication list seen and reviewed Home Medications: Amantadine HCl [Amantadine] 100 mg PO ,12 02/08/18 [Last Taken 04/19/18 04:30] Carbidopa/Levodopa 25/250Mg [Sinemet 25/250 MG (*)] 1 tab PO 04,08,12,16 [Last Taken 04/19/18 04:30] Gabapentin 600 mg PO 04,08,12,21 02/08/18 [Last Taken 04/19/18 04:30] Levothyroxine [Synthroid 75 mcg (*)] 75 mcg PO 0400 02/08/18 [Last Taken 04:30] Sertraline HCl [Zoloft 50mg (*)] 25 mg DAILY 02/08/18 [Last Taken 04/19/18 04:30 ] Carbidopa/Levodopa 25/250Mg [Sinemet 25/250 MG (*)] 0.5 tab PO HS 02/13/18 [ Last Taken 04/18/18 09:30] - NPO status NPO Status: no food or drink >8 hours NPO Since - Liquids (Date): 04/18/18 NPO Since - Liquids (Time): 22:30 NPO Since - Solids (Date): 04/18/18 NPO Since - Solids (Time): 22:30 - Anes Hx Anes Hx: post operative nausea and vomiting - Smoking Hx Smoking Status: Never smoked - Family Anes Hx Family Anes Hx: none Family Hx Anesthesia Complications: none ANE Labs/Vital Signs - Vital Signs Vital Signs: reviewed preoperatively; see RN documention for details Blood Pressure: 130/87 Heart Rate: 78 Respiratory Rate: 18 O2 Sat (%): 96 Height: 167.64 cm Weight: 62.142 kg ANE Physical Exam - Airway Neck exam: FROM Mallampati Score: Class 2 Mouth exam: normal dental/mouth exam, small mouth opening - Pulmonary Pulmonary: no respiratory distress - Cardiovascular Cardiovascular: regular rate and rhythym - ASA Status ASA Status: II ANE Anesthesia Plan Anesthesia Plan: general endotracheal anesthesia Total IV Anesthesia: Yes
[2018-04-19] MEDS ORDERED: MIDAZOLAM 2 MG/2 ML VIAL ONE (07:06)
[2018-04-19] MEDS ORDERED: ONDANSETRON 4 MG/2 ML VIAL ONE (07:07)
[2018-04-19] MEDS ORDERED: ROCURONIUM 50 MG/5 ML VIAL ONE (07:07)
[2018-04-19] MEDS ORDERED: DEXAMETHASONE 4 MG/ML VIAL ONE ×2 (07:07)
[2018-04-19] MEDS ORDERED: LIDOCAINE 1% 300 MG/30 ML SDV ONE (07:16)
[2018-04-19] MEDS ORDERED: NALOXONE HCL 0.4 MG/ML INJ IVP PRN (08:11)
[2018-04-19] MEDS ORDERED: ACETAMINOPHEN 500 MG TAB PO PRN (08:11)
[2018-04-19] MEDS ORDERED: HYDROmorphONE/DILAUDID 2 MG/ML INJ IVP PRN (08:11)
[2018-04-19] MEDS ORDERED: PHENYLEPHRINE HCL 100 MCG/ML SYR IVP PRN (08:11)
[2018-04-19] MEDS ORDERED: ONDANSETRON 4 MG/2 ML VIAL IVP PRN (08:11)
[2018-04-19] MEDS ORDERED: oxyCODONE IR 5 MG TAB PO PRN (08:11)
[2018-04-19] MEDS ORDERED: MEPERIDINE 25 MG/0.5 ML AMP IVP PRN (08:11)
[2018-04-19] MEDS ORDERED: ALBUTEROL 3 ML DEYVIAL IH PRN (08:11)
[2018-04-19] MEDS ORDERED: METOCLOPRAMIDE 10 MG/2 ML VIAL IVP PRN (08:11)
[2018-04-19] MEDS ORDERED: LR 500 ML IV PRN (08:11)
[2018-04-19] MEDS ORDERED: PROMETHAZINE HCL 25 MG/ML INJ IVP PRN (08:11)
[2018-04-19] MEDS ORDERED: LABETALOL HCL 5 MG/ML 20 ML MDV IVP PRN (08:11)
[2018-04-19] MEDS ORDERED: HYDROCODONE/APAP 5/325 TAB PO PRN (09:42)
[2018-04-19] MEDS ORDERED: ONDANSETRON DISINTEGRATING 4 MG TAB PO PRN (09:42)
--- NOTE | 2018-04-19 09:50 | GOP ---
[f rep st] PREOP HISTORY AND PHYSICAL DATE OF ADMISSION: 04/19/2018 PREOPERATIVE DIAGNOSIS: Parkinson's disease. POSTOPERATIVE DIAGNOSIS: Parkinson's disease. PROCEDURE: 1. Bilateral deep brain stimulator generator placement with connection to indwelling leads at the [facility] nucleus. Generator is an Activa SC generator. 2. Bilateral impedances. BLACK PULLER: . EBL: 100 mL. FLUIDS: 900 mL crystalloid. URINE OUTPUT: None. DRAINS: None. SPECIMENS: None. COMPLICATIONS: None. INDICATIONS: This is a 62-year-old female with Parkinson's disease, who has bilateral deep brain sti mulator leads placed to the STN nucleus. She returns today for generator placement. I did discuss s ubmuscular placement secondary to her body habitus. She elected to move forward with subpectoralis p lacement. DESCRIPTION OF PROCEDURE: She was identified, consented. Sites were marked, brought to the operatin g room, anesthetized under general endotracheal tube anesthesia. Hair was clipped with the OR clippe rs. Starting on the left side, incision site was marked. She was prepped and draped in the usual st erile fashion. Incision of the chest was anesthetized with 0.25% Marcaine with epinephrine. Incisio n was made with a 10 blade. Hemostasis was obtained just lateral to lead extension complex, and at t he chest wall. We dissected under the subpectoral layer, created a blunt pocket, dissected out the l ead extension complex at the lateral aspect of the head, and tunneled from the head down to the chest wall in a single pass over the collarbone, bringing the lead extension up and out. Cut the lead ext ension complex sutures with an 11 blade, retracted the boot, protecting each contact. Used the CorrectNetqu e wrench to remove the extension cap and boot and discarded them, placed lead into the generator, loc ked into place with a torque wrench, replaced the new boot, gently dried the lead, placed it into the lead extension complex, locked it down with the torque wrench protecting each contact, brought the b oot over the lead extension complex, tied in position with 2-0 silk ties at 2 positions laid flat aga inst the skull, coiled the wires posterior to the generator, checked impedances. All impedances were good. Sutured the generator to the chest wall with 2-0 silk stitch at 2 positions. Copiously irrig ated each incision with over a liter of gentamicin-infused saline. Closed the galea with 2-0 Vicryl pop-offs and the skin with a 3-0 running nylon at the chest wall, closed the fascia with 2-0 Vicryl p op offs, subcutaneous layer of 3-0 Vicryl pop-offs. The skin was closed with 4-0 running Monocryl an d Dermabond. Wound was dressed with Xeroform gauze and Medipore tape. The patient was undraped. Head was turned. The other side was prepped and draped in the usual steril e fashion. The exact same procedure was performed, anesthetizing the chest wall with 0.5% Marcaine w ith epinephrine, making incision just lateral to lead extension complex with a 10 blade, making incis ion at the chest wall with a 10 blade, dissecting through the pectoralis with Metzenbaum scissors, cr eating subpectoralis pocket, dissecting the lead extension complex up and out, tunneling from the hea d down to the chest wall, bringing the lead extension up and out, cutting the lead extension complex sutures with 11 blade, retracted the boot, protecting each contact. Used the torque wrench, removed the extension, removed the boot, placed a new boot, placed the lead into the extension after gently d rying the lead, protecting each contact, locked into place with a torque wrench. Brought the boot ov er the lead extension complex, tied in position with 2-0 silk ties at 2 positions, brought it flat ag ainst the skull, placed lead into the generator, locked in place with a torque wrench. Coiled the wi re posterior to the generator, placed it into the pocket. Checked impedances. All impedances were g ood. Sutured the generator to the chest wall with 2-0 silk stitch at 2 positions. Copiously irrigat ed with over a liter of gentamicin-infused saline at each incision, closed the head galea with 2-0 Vi cryl pop-offs, the skin with 3-0 running nylon, dressed it with Xeroform gauze and Medipore. At the chest wall, closed the fascia with 2-0 Vicryl pop-offs, subcutaneous layer 3-0 Vicryl pop-offs. The skin was closed with 4-0 running Monocryl and Dermabond. Both head wounds were redressed with Xerofo rm gauze and a Tegaderm. Patient tolerated procedure well. No complications. /[id number]/MODL
[2018-04-19] MEDS: fentaNYL 100 MCG/2 ML INJ IVP PRN ×2 (10:02→10:40)
--- NOTE | 2018-04-19 10:17 | POSTOPPROG ---
Post Op Note Date of Operation: 04/19/18 Surgeon: Susy Mackey Salesperson Sewing Machines: Rachel Yu PA-C Anesthesia: GET(General Endotracheal) Pre-op Diagnosis: Parkinson's Post-op Diagnosis: Parkinson's Procedure: Bilateral DBS genertor implant Inf/Abcess present in the surg proc area at time of surgery?: No Depth: Deep Incisional (Fascial) EBL: 50-100 Plan Plan: 62 yo female s/p implant of bilateral DBS generators - pain control - advance diet as tolerated - discharge home today
[2018-04-19] MEDS ORDERED: oxyCODONE IR 5 MG TAB ONE (11:05)
--- NOTE | 2018-04-19 13:52 | POSTANESTH ---
Post Anesthetic Evaluation Cardiovascular Status: Normal, Stable Respiratory Status: Normal, Stable Level of Consciousness/Mental Status: Can Participate in Eval, Mildly Sleepy, Arousable Pain Control: Adequate, Prn Tx Ordered Nausea/Vomiting Control: Adequate, Prn Tx Ordered Complications Possibly Related to Anesthesia: None Noted
[2018-04-19 14:20] VITALS: BP 121/78
== END 2018-04-19 14:20 | disposition home or self-care (01) ==
LOC: FSGY 05:37
PROVIDERS: ATTEND Neurological Surgery
PROC: 0JH60DZ Insertion of Multiple Array Stimulator Generator into Chest Subcutaneous Tissue and Fascia, Open Approach (ICD-10-PCS; principal; 2018-04-19 07:15)
DX: G20 Parkinson's disease (principal)
CPT/HCPCS: C1767; C1787; C1883; J0171; J0690; J1100; J1580; J2250; J2405; J2704; J3010